=== PATIENT | male | born 1975 | race Caucasian/White ===

== ENCOUNTER 2024-05-14 02:16 | Emergency (ER) | payer BC ==
[2024-05-14 02:46] VITALS: TEMP 97.1
[2024-05-14 03:18] LABS: Absolute Neutrophil Ct (ANC) 12.45 x10^3/uL (1.78-5.38); BASOPHIL % 0.3 % (0.2-1.2); Basophil (Absolute #) 0.04 x10^3/uL (0.01-0.08); Eosinophil % 0.1 % (0.8-7.0); Eosinophil (Absolute #) 0.02 x10^3/uL (0.04-0.54); Hematocrit 40.8 % (40.1-51.0); Hemoglobin 13.5 g/dL (13.7-17.5); IMMATURE GRAN # 0.05 x10^3u/L (0.001-0.031); IMMATURE GRAN % 0.3 % (0.001-0.429); Lymphocyte (Absolute #) 1.01 x10^3/uL (1.32-3.57); Lymphocytes % 6.9 % (21.8-53.1); Mean Corpuscular Hemoglobin 28.8 pg (25.7-32.2); Mean Corpuscular Hgb Concent. 33.1 g/dL (32.3-36.5); Mean Platelet Volume 9.4 fL (9.4-12.4); Monocyte (Absolute #) 0.97 x10^3/uL (0.30-0.82); Monocytes % 6.7 % (5.3-12.2); Neutrophil % 85.7 % (34.0-67.9); Platelet Count 238 x10^3/uL (163-337); Red Blood Count 4.69 x10^6/uL (4.63-6.08); Red Cell Distribution Width 11.7 % (11.6-14.4); White Blood Count 14.5 x10^3/uL (4.23-9.07)
[2024-05-14 03:34] LABS: ALBUMIN 4.3 g/dL (3.5-5.0); ANION GAP 11.8 MEQ/L (5-15); BILIRUBIN,TOTAL 0.6 mg/dL (0.2-1.3); Calcium 9.3 mg/dL (8.4-10.2); Creatinine 1 0.92 mg/dL (0.66-1.25); EST GLOMERULAR FILTRATION RATE 103.3 ML/MIN; Potassium 4.1 mmol/L (3.5-5.1); Total Protein 7.5 g/dL (6.3-8.2)
--- NOTE | 2024-05-14 04:03 | XRAY ---
CLINICAL HISTORY: r/o constipation, obstruction COMPARISON: None. TECHNIQUE: A CT scan of the abdomen and pelvis was performed without IV contrast. Coronal and sagittal reconstructive images were also obtained. One of the following dose reduction techniques was utilized for this exam: Automated exposure control, adjustment of the mA and/or kV according to patient size, and use of iterative reconstruction.? FINDINGS: The liver is average in size showing a smooth outline. No focal or diffuse parenchymal abnormality. The intrahepatic biliary radicals and the bile ducts are unremarkable. The gallbladder is unremarkable. No pericholecystic collection or radio-dense calculi in the gall bladder. Splenic calcified granulomas were seen. Right adrenal calcification was also seen, likely granulomatous as well. The pancreas and left adrenal gland are unremarkable. The kidneys are unremarkable. No calculi or hydronephrosis. A small diverticular outpouching is seen arising from the transverse colon with clear surrounding fat. Diverticular outpouching also seen arising from the 3rd part of the duodenum. Otherwise, the ascending colon, the transverse colon, the descending, sigmoid colon, and visualized small bowel loops are unremarkable. Mild rectal mural thickening, most evident along its posterior aspect. No gross bowel masses or signs of intestinal obstruction. Stranding of the vin-rectal fat planes. The appendix is unremarkable. No significant mesenteric, pelvic, or retroperitoneal lymph node enlargement. Unremarkable abdominopelvic vasculature. No ascites or retroperitoneal collections. The urinary bladder and prostate are unremarkable. No aggressive-looking bone lesions. The scanned lower lung cuts show right basal calcified granulomas. IMPRESSION: 1. No gross bowel masses or signs of intestinal obstruction. 2. Mild rectal mural thickening, most evident along its posterior aspect with stranding of the vin-rectal fat planes. Could be inflammatory and need clinical correlation. 3. The rest of the findings, as detailed above. [facility] ER was called at [phone] at 2:56 AM [employer], 05/14/2024 and important medical findings were verbally communicated to Dr Garcia. Electronically Signed by: Tom Bryant MD. (05/14/2024 03:58:27 EDT)
[2024-05-14 04:10] LABS: Appearance Clear (Clear); Bacteria None Seen /HPF (None Seen); Bilirubin Negative (Negative); Blood Negative (Negative); Epithelial Cells None Seen /HPF (None Seen); Glucose, Urine Negative (Negative); Hyaline Casts NONE SEEN /LPF (0-2); Ketones 15 (Negative); Leukocyte Esterase Negative (Negative); Nitrite Negative (Negative); Protein,Urine Dip Negative (Negative); RBC 0-2 /HPF (0-5); WBC 0-2 /HPF (0-5)
[2024-05-14 04:11] LABS: ADD URINE CULTURE? NO (NO)
[2024-05-14] MEDS ORDERED: TORAdol 30 mg Injection ONE (04:15)
[2024-05-14] MEDS ORDERED: Flagyl 500 MG ONE (04:16)
[2024-05-14] MEDS ORDERED: Levofloxacin 500 MG Tablet ONE (04:16)
--- NOTE | 2024-05-14 04:22 | ERPHSYRPT ---
- History of Present Illness Time Seen by Provider: 05/14/24 04:16 Historian: patient Exam Limitations: no limitations Patient Subjective Stated Complaint: pt states he has been constipated and passed a large stool and has been having rectal pain and mild bleeding since. Triage Nursing Assessment: pt alert and oriented. answers questions approp. pt ambulates into room with steady gait noted. respirations nonlabored. skin warm and dry. abd soft and nontender. bowel sounds present. Physician History: 49-year-old fairly healthy male with history of constipation presented in the ER after he had a hard stool which needed a lot of straining and some manual disimpaction earlier tonight. He had to take suppository and did drink some prune juice. Patient reports afterwards he is having pain around that perirectal area. Did notice some bright red blood with it. No bleeding currently. Denies any abdominal pain. It hurts to sit on. Allergies/Adverse Reactions: No Known Drug Allergies Allergy (Verified 05/14/24 04:20) Hx Tetanus, Diphtheria Vaccination/Date Given: Yes Hx Influenza Vaccination/Date Given: No Hx Pneumococcal Vaccination/Date Given: No Immunizations Up to Date: Yes Travel Risk - International Travel Have you traveled outside of the country in past 3 weeks: No - Emerging Infectious Disease Are you exhibiting symptoms associated with any current EIDs: No - Review of Systems Constitutional: No Symptoms Ears, Nose, & Throat: No Symptoms Respiratory: No Symptoms Cardiac: No Symptoms Abdominal/Gastrointestinal: Constipation Genitourinary Symptoms: No Symptoms Musculoskeletal: No Symptoms Skin: No Symptoms Neurological: No Symptoms Endocrine: No Symptoms Hematologic/Lymphatic: No Symptoms - Past Medical History Pertinent Past Medical History: No - Past Surgical History Past Surgical History: Yes Gastrointestinal: Hernia Repair - Social History Smoking Status: Never smoker Exposure to second hand smoke: No Drug Use: none - Social Determinants of Health Will the patient participate in the screening: Declined to provide - Nursing Vital Signs Nursing Vital Signs: Initial Vital Signs Temperature 97.1 F 05/14/24 02:24 Pulse Rate 95 H 05/14/24 02:24 Respiratory Rate 16 05/14/24 02:24 Blood Pressure 120/71 05/14/24 02:24 O2 Sat by Pulse Oximetry 99 05/14/24 02:24 Pain Scale Pain Intensity 3 - Physical Exam General Appearance: no apparent distress, alert Ears, Nose, Throat Exam: normal ENT inspection Neck Exam: normal inspection, full range of motion Respiratory Exam: normal breath sounds, lungs clear Cardiovascular Exam: regular rate/rhythm, normal heart sounds Gastrointestinal/Abdomen Exam: soft, normal bowel sounds, No tenderness, No guarding Rectal Exam: tenderness, No normal rectal tone, No blood Back Exam: normal inspection, normal range of motion Extremity Exam: normal inspection, normal range of motion Neurologic Exam: alert, oriented x 3, cooperative Skin Exam: normal color SpO2 Interpretation: normal SpO2: 95 O2 Delivery: Room Air Ordered Tests: Active Orders 24 hr Category Date Time Status ABDOMEN AND PELVIS W/0 CONTRAS [CT] Stat Exams 05/14/24 03:02 Completed CBC W DIFF Stat Lab 05/14/24 03:16 Completed CMP Stat Lab 05/14/24 03:16 Completed LIPASE Stat Lab 05/14/24 03:16 Completed UA W/RFX UR CULTURE Stat Lab 05/14/24 03:59 Completed Medication Summary Discontinued Medications Generic Name Dose Route Start Last Admin Trade Name Freq PRN Reason Stop Dose Admin Ketorolac Tromethamine 30 mg 05/14/24 04:13 Ketorolac Tromethamine 30 Mg/Ml Inj IM 05/14/24 04:14 STAT ONE Ketorolac Tromethamine Confirm 05/14/24 04:15 Ketorolac Tromethamine 30 Mg/Ml Inj Administered 05/14/24 04:16 Dose 30 mg .ROUTE .STK-MED ONE Levofloxacin Confirm 05/14/24 04:16 Levofloxacin 500 Mg Tablet Administered 05/14/24 04:17 Dose 500 mg .ROUTE .STK-MED ONE Metronidazole Confirm 05/14/24 04:16 Metronidazole 500 Mg Tablet Administered 05/14/24 04:17 Dose 500 mg .ROUTE .STK-MED ONE Lab/Rad Data: Laboratory Result Diagrams 05/14/24 03:16 05/14/24 03:16 Laboratory Results 05/14/24 05/14/24 05/14/24 Range/Units 03:59 03:16 03:16 WBC 14.5 H (4.23-9.07) x10^3/uL RBC 4.69 (4.63-6.08) x10^6/uL Hgb 13.5 L (13.7-17.5) g/dL Hct 40.8 (40.1-51.0) % MCV 87.0 (79.0-92.2) fL MCH 28.8 (25.7-32.2) pg MCHC 33.1 (32.3-36.5) g/dL RDW 11.7 (11.6-14.4) % Plt Count 238 (163-337) x10^3/uL MPV 9.4 (9.4-12.4) fL Gran % 85.7 H (34.0-67.9) % Immature Gran % (Auto) 0.3 (0.001-0.429) % Nucleat RBC Rel Count 0.0 (0.00-0.2) % Eos # (Auto) 0.02 L (0.04-0.54) x10^3/uL Immature Gran # (Auto) 0.05 H (0.001-0.031) x10^3u/L Absolute Lymphs (auto) 1.01 L (1.32-3.57) x10^3/uL Absolute Monos (auto) 0.97 H (0.30-0.82) x10^3/uL Absolute Nucleated RBC 0.00 (0.00-0.012) x10^3u/L Lymphocytes % 6.9 L (21.8-53.1) % Monocytes % 6.7 (5.3-12.2) % Eosinophils % 0.1 L (0.8-7.0) % Basophils % 0.3 (0.2-1.2) % Absolute Granulocytes 12.45 H (1.78-5.38) x10^3/uL Basophils # 0.04 (0.01-0.08) x10^3/uL Sodium 134 L (135-145) mmol/L Potassium 4.1 (3.5-5.1) mmol/L Chloride 100 (98-107) mmol/L Carbon Dioxide 26 (22-30) mmol/L Anion Gap 11.8 (5-15) MEQ/L BUN 24 H (9-20) mg/dL Creatinine 0.92 (0.66-1.25) mg/dL Estimated GFR 103.3 ML/MIN Glucose 123 H (74-106) mg/dL Calcium 9.3 (8.4-10.2) mg/dL Total Bilirubin 0.60 (0.2-1.3) mg/dL AST 31 (17-59) U/L ALT 23 (0-50) U/L Alkaline Phosphatase 76 (38-126) U/L Serum Total Protein 7.5 (6.3-8.2) g/dL Albumin 4.3 (3.5-5.0) g/dL Lipase 201 (23-300) U/L Urine Color Yellow (Yellow) Urine Appearance Clear (Clear) Urine pH 6.0 (4.6-8.0) Ur Specific [place] 1.020 (1.005-1.030) Urine Protein Negative (Negative) Urine Glucose (UA) Negative (Negative) mg/dL Urine Ketones 15 A (Negative) Urine Blood Negative (Negative) Urine Nitrite Negative (Negative) Urine Bilirubin Negative (Negative) Urine Urobilinogen 1.0 A (0.2) mg/dL Ur Leukocyte Esterase Negative (Negative) U Hyaline Cast (Auto) NONE SEEN (0-2) /LPF Urine Microscopic RBC 0-2 (0-5) /HPF Urine Microscopic WBC 0-2 (0-5) /HPF Ur Epithelial Cells None Seen (None Seen) /HPF Urine Bacteria None Seen (None Seen) /HPF Urine Culture Reflexed NO (NO) - Progress Progress: pain not gone completely Progress Note: 05/14/24 04:27 49-year-old is evaluated in the ER for perirectal area pain after patient had a large bowel movements where he had to strain and manually disimpact hard stool. Patient did have small bleeding as well. I did not appreciate any bleeding. Has mild increased tone. Possible fissure at the 6 o'clock position. Workup showed white count of 14, chemistries fairly unremarkable. No UTI. CT negative for obstruction perforation but did show perirectal fat stranding and some mural thickening of rectal. I would start him on Cipro and Flagyl. He is given Toradol for symptomatic relief. Recommended daily stool softener and MiraLAX and increase fiber in the diet to avoid constipation. Discussed signs symptoms of worsening needing return to ER which he seems understanding. Stable for discharge. Counseled pt/family regarding: lab results, diagnosis, need for follow-up, rad results Medical Desision Making - Independent Historian Additional History obtained from: Spouse - Diagnostic Testing Diagnostic test were ordered, analyzed, and reviewed by me: Yes Radiological Interpretation: Reviewed by me, Teleradiologist Report - Risk of complications The pt has a mod risk of morbidity or mortality based on: Need for prescription drug management - Departure Departure Disposition: Home Clinical Impression: Constipation, Perirectal inflammation Condition: Stable Critical Care Time: No Referrals: UBALDO ANN, [employer] [Primary Care Provider] - Follow up with PCP 1 day Instructions: Constipation, Adult (DC) Additional Instructions: Tylenol/ibuprofen as needed. Take daily MiraLAX and stool softener to avoid constipation. Increase fiber in the diet and may take fiber supplements. Follow-up with primary care for reevaluation. Return to ER for increasing pain and if having fever or chills, difficulty bowel movement, rectal bleeding etc. Prescriptions: Ciprofloxacin [Cipro 500 MG] 500 mg PO BID #14 tablet Metronidazole 500 mg [Flagyl 500 MG] 500 mg PO TID #21 tablet
[2024-05-14] MEDS: TORAdol 30 mg Injection IM ONE (04:29)
[2024-05-14] MEDS: Levofloxacin 500 MG Tablet PO ONE (04:30)
[2024-05-14] MEDS: Flagyl 500 MG PO ONE (04:30)
[2024-05-14 04:47] VITALS: BP 110/67; PULSE 74; RESP 18; O2SAT 99
== END 2024-05-14 04:48 | disposition home or self-care (01) ==
LOC: ED 02:16
DX: K59.00 Constipation, unspecified (principal); K62.89 Other specified diseases of anus and rectum; Z79.899 Other long term (current) drug therapy
CPT/HCPCS: 36415; 74176; 80053; 81001; 83690; 85025; 96372; 99284; J1885; A9270-GY